=== PATIENT | female | born 1985 | race Two or more races ===

== ENCOUNTER 2024-03-19 17:31 | Emergency (ER) | payer MEDICARE, SELFPAY ==
--- NOTE | ~2024-03-19 | XR_ITS ---
EXAMINATION: XR HAND, RIGHT CLINICAL INFORMATION: Index finger injury, pain COMPARISON: None available. TECHNIQUE: PA, lateral, and oblique views of the right hand. FINDINGS: No evidence of acute fracture or malalignment. Joint spaces are well preserved. Normal bone mineralization. Soft tissues unremarkable. XR/XR hand RT 2V IMPRESSION: Normal right hand radiographs.
[2024-03-19 18:10] VITALS: BP 115/74; BP 128/64; PULSE 104; PULSE 85; RESP 18; TEMP 36.9; O2SAT 96; O2SAT 98; BMI 30.8
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
[2024-03-19] MEDS: Lidocaine HCl 1 % MPF 5 ML VIAL 10 ML SUBCUT (18:28)
[2024-03-19] MEDS: oxyCODONE HCl Immed Release 5 MG TABLET PO (18:28)
[2024-03-19] MEDS: Amoxicillin/Potassium Clav 875 MG TABLET PO (18:28)
[2024-03-19] MEDS: LORazepam 1 MG TABLET PO (19:18)
[2024-03-19 19:22] VITALS: BP 120/72; PULSE 84; RESP 18; TEMP 36.8; O2SAT 98
== END 2024-03-19 19:23 | disposition home or self-care (01) ==
PROVIDERS: Emergency Provider Emergency Medicine
DX: S01.311A Laceration without foreign body of right ear, initial encounter (principal); H92.01 Otalgia, right ear; Y04.2XXA Assault by strike against or bumped into by another person, initial encounter; Y93.9 Activity, unspecified; Y92.810 Car as the place of occurrence of the external cause; Y99.8 Other external cause status
CPT/HCPCS: 12052; 73120; 99283; 99284